=== PATIENT | female | born 1925 | race Caucasian/White ===

== ENCOUNTER 2016-07-31 19:26 | Observation (INO) ==
[2016-07-31] MEDS ORDERED: cefTRIAXone 1 GM VIAL IM ONE (19:53)
[2016-07-31 20:48] LABS: Basophils # (Auto) 0.1 K/mcL (0.0-0.3); Basophils % (Auto) 0.5 % (0.0-2.0); Eosinophils # (Auto) 0 K/mcL (0.0-0.7); Eosinophils % (Auto) 0.2 % (0.0-7.0); Granulocytes % (Auto) 82.7 % (38.0-78.0); Lymphocytes # (Auto) 1.1 K/mcL (1.5-4.8); Lymphocytes % (Auto) 8.2 % (15.5-49.0); Mean Cell Volume 89.4 fL (80.0-100.0); Mean Corpuscular HGB Conc 33.8 g/dL (31.0-36.0); Mean Corpuscular Hemoglobin 30.3 pg (26.0-34.0); Monocytes # (Auto) 1.1 K/mcL (0.1-0.9); Monocytes % (Auto) 8.4 % (1.0-12.0); Platelet Count 301 K/mcL (140-440); RBC 4.69 M/mcL (4.00-5.20); Red Cell Distribution Width 12.3 % (11.5-14.5)
[2016-07-31 20:56] LABS: ALT/SGPT 17 U/l (0-40); Albumin 4.4 gm/dL (3.2-5.2); Albumin/Globulin Ratio 1.4 (1.0-2.3); Alkaline Phosphatase 83 U/L (39-117); Blood Urea Nitrogen 16 mg/dl (8-23)
[2016-07-31 21:01] LABS: Appearance,Urine TURBID; Bacteria,Urine MANY /hpf (0); Bilirubin,Urine NEG (NEG); Color,Urine AMBER; Glucose,Urine (UA) NEGATIVE (NEG); Leukocyte Esterase,Urine 500 /uL (NEG); Nitrate,Urine NEG (NEG); Protein,Urine 100 mg/dL (NEG); Specific Gravity,Urine 1.015 (1.000-1.035); Urine Blood >=1.0 mg/dL (<0.03); Urine RBC 78 /hpf (0-1); Urine Squamous Epithelial Cell 0 /hpf (0-4); Urine WBC > 182 /hpf (0-4); Urobilinogen,Urine NEG (NEG)
[2016-07-31] MEDS ORDERED: 0.9 % SODIUM CHLORIDE 1,000 ML IV ONE (21:12)
--- NOTE | 2016-07-31 21:22 | Emergency Department Note ---
Altered Mental Status HPI - General Chief Complaint: Altered Mental Status Stated Complaint: confusion, pos unwitnessed fall Time Seen by Provider: 07/31/16 19:41 Source: patient Mode of arrival: wheelchair Limitations: altered mental status - History of Present Illness HPI Narrative: 89-year-old female who was found by her son on the floor covered in urine- she damien depended side of [facility] facility across the street. In the past this is been from a UTI- she gets quite confused with these. Unclear how long she was down. She is not able to walk or get up secondary to weakness- normally she ambulates with a walker independently to meals 3 times a day All history from her son- she is able to answer yes and no questions but is unable to remember any events, minimal reliable review of systems and history - Related Data Previous Rx's Medication Instructions Recorded Polyethylene Glycol 3350 [Miralax] 17 gm PO Q1HP PRN #500 gm 10/23/14 traMADol [Ultram] 50 mg PO Q4-6HP PRN #10 tablet 10/25/14 Allergies Allergy/AdvReac Type Severity Reaction Status Date / Time No Known Drug Allergies Allergy Unverified 09/26/14 07:55 Review of Systems All systems ED: reviewed and negative except as stated. Past Medical History - Past Medical History Source: obtained from family Medical history: Denies: cancer, coronary artery disease Surgical history ED: Reports: no surgical history - Social History smoking status: Never smoker Alcohol use: Reports: None Physical Exam Normocephalic atraumatic. Conjunctiva clear sclerae anicteric. No nasal discharge or congestion. Oropharynx is pink and moist. Neck supple without lymphadenopathy or thyromegaly. Heart is regular rate and rhythm no murmurs appreciated. Lungs are clear to auscultation bilaterally without wheezes rales rhonchi or respiratory distress. Abdomen soft nontender nondistended. No peritoneal signs or guarding. No CVA tenderness. No pedal edema. +2 radial pulse. Alert and able to answer questions, but seems to have some short-term memory loss. Mild confusion noted. No dysarthria or ataxia. Euthymic - General Limitations: no limitations Course Vital Signs Temperature 97.7 F 07/31/16 19:27 Pulse Rate 88 07/31/16 19:27 Respiratory Rate 18 07/31/16 19:27 Blood Pressure 207/86 07/31/16 19:27 Pulse Oximetry (%) 96 07/31/16 19:27 Temperature 97.7 F 07/31/16 19:27 Pulse Rate 74 07/31/16 20:46 Respiratory Rate 18 07/31/16 19:27 Blood Pressure 180/156 07/31/16 21:01 Pulse Oximetry (%) 97 07/31/16 20:46 Altered Mental Status - Lab Data Lab results reviewed: Yes I reviewed the patient's lab results. Result diagrams: 07/31/16 20:10 07/31/16 20:10 Lab Results 07/31/16 07/31/16 07/31/16 Range/Units 19:56 20:10 20:10 WBC 13.2 H (4.5-11.0) K/mcL RBC 4.69 (4.00-5.20) M/mcL Hgb 14.2 (12.0-15.0) g/dL Hct 42.0 (36.0-48.0) % MCV 89.4 (80.0-100.0) fL MCH 30.3 (26.0-34.0) pg MCHC 33.8 (31.0-36.0) g/dL RDW 12.3 (11.5-14.5) % Plt Count 301 (140-440) K/mcL MPV 8.4 (7.4-10.4) fL Gran % 82.7 H (38.0-78.0) % Lymph % (Auto) 8.2 L (15.5-49.0) % [place] % (Auto) 8.4 (1.0-12.0) % Eos % (Auto) 0.2 (0.0-7.0) % Baso % (Auto) 0.5 (0.0-2.0) % Gran # 10.9 H (1.8-8.0) K/mcL Lymph # 1.1 L (1.5-4.8) K/mcL [place] # 1.1 H (0.1-0.9) K/mcL Eos # 0 (0.0-0.7) K/mcL Baso # 0.1 (0.0-0.3) K/mcL VBG Lactic Acid (0.5-2.2) mmol/L Sodium 139 (133-145) mmol/L Potassium 3.4 (3.3-5.1) mmol/L Chloride 99 (96-108) mmol/L Carbon Dioxide 22 (22-30) mmol/L Anion Gap 18.0 H (8-16) BUN 16 (8-23) mg/dl Creatinine 0.8 (0.6-1.1) mg/dl GFR Calculation 65 Glucose 184 H (70-105) mg/dL Calcium 9.8 (8.6-10.4) mg/dl Total Bilirubin 1.0 (0.0-1.0) mg/dL AST 34 (0-37) U/l ALT 17 (0-40) U/l Alkaline Phosphatase 83 (39-117) U/L Total Protein 7.5 (5.9-8.4) gm/dL Albumin 4.4 (3.2-5.2) gm/dL Globulin 3.1 (2.2-3.7) gm/dL Albumin/Globulin Ratio 1.4 (1.0-2.3) Urine Color Raquel Urine Appearance Turbid Urine pH 6.0 (5.0-9.0) Ur Specific [place] 1.015 (1.000-1.035) Urine Protein 100 A (NEG) mg/dL Urine Glucose (UA) Negative (NEG) mg/dL Urine Ketones 20 A (NEG) mg/dL Urine Occult Blood >=1.0 A (<0.03) mg/dL Urine Nitrate Neg (NEG) Urine Bilirubin Neg (NEG) mg/dL Urine Urobilinogen Neg (NEG) mg/dL Ur Leukocyte Esterase 500 A (NEG) /uL Urine RBC 78 H (0-1) /hpf Urine WBC > 182 H (0-4) /hpf Ur Squamous Epith Cells 0 (0-4) /hpf Urine Bacteria Many A (0) /hpf Ur Culture Indicated? Yes 07/31/16 Range/Units 20:10 WBC (4.5-11.0) K/mcL RBC (4.00-5.20) M/mcL Hgb (12.0-15.0) g/dL Hct (36.0-48.0) % MCV (80.0-100.0) fL MCH (26.0-34.0) pg MCHC (31.0-36.0) g/dL RDW (11.5-14.5) % Plt Count (140-440) K/mcL MPV (7.4-10.4) fL Gran % (38.0-78.0) % Lymph % (Auto) (15.5-49.0) % [place] % (Auto) (1.0-12.0) % Eos % (Auto) (0.0-7.0) % Baso % (Auto) (0.0-2.0) % Gran # (1.8-8.0) K/mcL Lymph # (1.5-4.8) K/mcL [place] # (0.1-0.9) K/mcL Eos # (0.0-0.7) K/mcL Baso # (0.0-0.3) K/mcL VBG Lactic Acid 2.3 H (0.5-2.2) mmol/L Sodium (133-145) mmol/L Potassium (3.3-5.1) mmol/L Chloride (96-108) mmol/L Carbon Dioxide (22-30) mmol/L Anion Gap (8-16) BUN (8-23) mg/dl Creatinine (0.6-1.1) mg/dl GFR Calculation Glucose (70-105) mg/dL Calcium (8.6-10.4) mg/dl Total Bilirubin (0.0-1.0) mg/dL AST (0-37) U/l ALT (0-40) U/l Alkaline Phosphatase (39-117) U/L Total Protein (5.9-8.4) gm/dL Albumin (3.2-5.2) gm/dL Globulin (2.2-3.7) gm/dL Albumin/Globulin Ratio (1.0-2.3) Urine Color Urine Appearance Urine pH (5.0-9.0) Ur Specific [place] (1.000-1.035) Urine Protein (NEG) mg/dL Urine Glucose (UA) (NEG) mg/dL Urine Ketones (NEG) mg/dL Urine Occult Blood (<0.03) mg/dL Urine Nitrate (NEG) Urine Bilirubin (NEG) mg/dL Urine Urobilinogen (NEG) mg/dL Ur Leukocyte Esterase (NEG) /uL Urine RBC (0-1) /hpf Urine WBC (0-4) /hpf Ur Squamous Epith Cells (0-4) /hpf Urine Bacteria (0) /hpf Ur Culture Indicated? initial urine dipstick [id number] nitrate positive Disposition Clinical Impression: UTI (lower urinary tract infection) Altered mental status Qualifiers: Altered mental status type: disorientation Qualified Code(s): R41.0 - Disorientation, unspecified Summary: Initial urinalysis showed blood nitrates and leukocytes but specific gravity was low. She was started on on IM Rocephin and labs were drawn. Some of her confusion improved but patient was still overall weak and not improved to the point that she was able to go home. Discussed case with Dr. Sood who agreed to admit patient for altered mental status and UTI Disposition: Xfer As Inpt ([facility]) Condition: Fair Referrals: Marjorie Sood MD [Physician] -
--- NOTE | 2016-07-31 23:21 | Internal Med History&Physical ---
Medical - H&P: HPI Patient information: Note initiated : 07/31/16 at 11:16 pm Service Date, if different from initiated Date: [] Patient: Kiara Dennis 89 y/o F admitted on 07/31/16 for confusion, pos unwitnessed fall. Chief Complaint: confusion/urinary incontinence History of present illness: This is an 89-year-old female with a history of acute encephalopathy related to urinary tract infection, constipation and cognitive impairment who was in her usual state of health yesterday evening when she was last seen by her son. She was coming to bring her groceries today and she did not answer her phone or her door. He used his own ochoa to get into her home which is in the independent side of assisted living at [place]. He found her sitting on the floor of her bathroom with her back against the wall covered in urine and hallucinating. He states she was seeing people that were not there. She had similar symptoms 2 years ago when she struggled with recurrent urinary tract infections. However, during those episodes she had urinary symptoms. Patient denies any dysuria or urgency. The son confirms that she has not complained of anything recently. He is concerned that she was on the bathroom floor all day and has not eaten or drunk anything during that time. At baseline, he reports that she is fairly healthy. She has not seen her primary care physician in 2 years. She is not currently on any medications. She has some difficulty with her short-term memory and keeping track of dates, but otherwise does well living independently. She has not had any fevers and denies nausea. He did not notice any focal deficits when he found her and there 've been no such deficits noted in the ED. Review of systems: Positive for intermittent constipation. Otherwise please see HPI. A comprehensive review of systems is negative or noncontributory to the chief complaint. Medical - H&P: PMH Medical history: Question history of hypertension. 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 She is a DNR/DNI. Her son, Anup Dennis, is her surrogate medical decision maker. Her primary care physician is Dr. Segal, but she has not seen him in 2 years per report. She ambulates with a frontwheel walker. She does not currently use tobacco alcohol or recreational drugs. Medical - H&P: Meds Allergies Allergy/AdvReac Type Severity Reaction Status Date / Time No Known Drug Allergies Allergy Unverified 09/26/14 07:55 Medical - H&P: Exam - Constitutional Vitals: Temp Pulse Resp BP Pulse Ox 98.4 F 77 20 170/84 96 07/31/16 23:00 07/31/16 23:00 07/31/16 23:00 07/31/16 23:00 07/31/16 23:00 General appearance: no acute distress Exam: pleasantly disoriented. Her son is at bedside and provides most of the history - Head Head exam: Present: atraumatic, normocephalic - Eye Eye exam: Present: EOMI, PERRL. Absent: conjunctival injection, scleral icterus - ENT ENT exam: Present: mucous membranes dry, normal oropharynx Additional comments: poor dentition - Neck Neck exam: Absent: lymphadenopathy, meningismus, tenderness, thyromegaly - Respiratory Respiratory exam: Present: CTAB. Absent: accessory muscle use, rales, wheezes - Cardiovascular Cardiovascular exam: Present: normal rate and rhythm, systolic murmur - GI/Abdominal GI/Abdominal exam: Present: normal bowel sounds, soft. Absent: tenderness - Extremities Exam Additional comments: no clubbing or cyanosis - Neurological Exam Neurological exam: Present: alert Additional comments: Oriented to self and recognize her son. She is unable to tell me the year. She states that we are in her home when given multiple choices. Her range of motion is limited her shoulders due to chronic arthritis pain. She has decreased bilateral hand crepe sole scourer for same reason. She has no focal deficits. - Psychiatric Psychiatric exam: Present: normal mood - Skin Skin exam: Present: dry, warm Medical - H&P: Reslt - Labs CBC & Chem 7: 07/31/16 20:10 07/31/16 20:10 Medical - H&P: A/P - Narrative A/P Narrative: * Acute encephalopathy -likely 2/2 UTI as she has had similar sx in past. No e/o other metabolic abnormalities on screening labs -Nonfocal neuro exam. Cont neuro checks and if changes, consider head CT -Underlying cog impairment vs mild dementia. Supportive care. Avoid neuroactive meds as able * Acute cystitis with hematuria -RF include postmenopausal state. ?frequency of incontinence -Last cx showed pansensitive E coli -Cont CTX. F/U Cx and narrow as able * Lactic acidosis -Clinically does not appear to have severe sepsis -Likely 2/2 hypovolemia -Cont IVF x 1L. s/p 1L in ED. Trend in AM * Found down -no e/o head trauma -Check CK. Adjust IVF as necessary * Hypertensive urgency -PRN labetalol -consider adding po med if continues * Bowel prophylaxis--schedule Senna. Monitor for diarrhea. Family is concerned that pt does not voice complaints or concerns and will need close monitoring. * DVT prophylaxis: enoxaparin * Disposition: TBD. PT/CM ordered. Medical - H&P: Qual - VTE Deep Vein Thrombosis/Pulmonary Embolism Present on Admission: No
[2016-07-31] MEDS ORDERED: ONDANSETRON 4 MG/2 ML VIAL IV PRN (23:41)
[2016-07-31] MEDS ORDERED: LABETALOL HCL 20 MG/4 ML SYRINGE IV PRN (23:41)
[2016-07-31] MEDS ORDERED: ACETAMINOPHEN 325 MG TABLET PO PRN (23:41)
[2016-07-31] MEDS ORDERED: 0.9 % SODIUM CHLORIDE 1,000 ML IV SCH (23:45)
[2016-08-01] MEDS: 0.9 % SODIUM CHLORIDE 10 ML SYRINGE IV SCH ×3 (05:44→20:28)
[2016-08-01 06:20] LABS: Basophils # (Auto) 0 K/mcL (0.0-0.3); Basophils % (Auto) 0.2 % (0.0-2.0); Eosinophils # (Auto) 0 K/mcL (0.0-0.7); Eosinophils % (Auto) 0.2 % (0.0-7.0); Granulocytes % (Auto) 78.8 % (38.0-78.0); Lymphocytes % (Auto) 8.9 % (15.5-49.0); Mean Cell Volume 91.1 fL (80.0-100.0); Mean Corpuscular HGB Conc 34.6 g/dL (31.0-36.0); Mean Corpuscular Hemoglobin 31.5 pg (26.0-34.0); Monocytes # (Auto) 1.4 K/mcL (0.1-0.9); Monocytes % (Auto) 11.9 % (1.0-12.0); Platelet Count 262 K/mcL (140-440); RBC 4.07 M/mcL (4.00-5.20)
[2016-08-01 06:33] LABS: Blood Urea Nitrogen 14 mg/dl (8-23)
[2016-08-01 08:03] LABS: Creatine Kinase 869 IU/L (24-170)
[2016-08-01] MEDS: ENOXAPARIN 40 MG/0.4 ML SYRINGE SQ SCH (10:13)
[2016-08-01] MEDS: cefTRIAXone 1 GM in DEXTROSE 5% IN WATER 50 ML IV SCH (10:13)
--- NOTE | 2016-08-01 11:00 | Internal Med Progress Note ---
Medical - PN: Subj Patient information: Note initiated : 08/01/16 at 10:57 am Service Date, if different from initiated Date: [] Patient: Kiara Dennis 89 y/o F admitted on 07/31/16 for confusion, pos unwitnessed fall. Chief Complaint: UTI Interval history: This is a pleasant 89-year-old female with a history of acute encephalopathy related to urinary tract infection, constipation and cognitive impairment who was admitted 07/31 with acute encephalopathy manifested by hallucinations and confusion. This was found to be secondary to a UTI. She has prior history of similar symptoms 2 years ago. She was found sitting down on her bathroom floor for an unknown period of time. She had mild elevation in her CK and has responded dramatically to ceftriaxone and fluids. At baseline, she is fairly healthy. She has not seen her primary care physician in 2 years. She is not currently on any medications. She has some difficulty with her short-term memory and keeping track of dates, but otherwise does well living independently. She has been evaluated by PT with plans to likely DC to independent living 08/02. 08/01: No longer confused. Lactic acidosis has resolved. CK trending down. Still having some difficulty getting around with walker. Cx still pending. Pertinent ROS: no fever or sob - Constitutional Vitals: Vital Signs Temp Pulse Resp BP Pulse Ox 98.3 F 77 16 165/94 98 08/01/16 06:38 08/01/16 03:20 08/01/16 06:38 08/01/16 06:38 08/01/16 06:38 Period Temp Pulse Resp BP Sys/Wright Pulse Ox Last 24 Hr 97.7 F-98.5 F 74-77 16-20 161-170/84-110 95-98 Intake and Output 07/31/16 08/01/16 08/01/16 21:59 05:59 13:59 Intake Total 1000 / 1000 600 / 600 Balance 1000 / 1000 600 / 600 Weight 139 lb Intake & Output: Intake & Output 07/31/16 08/01/16 08/01/16 21:59 05:59 13:59 Intake Total 1000 / 1000 600 / 600 Balance 1000 / 1000 600 / 600 Weight 139 lb Intake: IV 1000 / 1000 Sodium Chloride 0.9% 1, 1000 / 1000 000 ml @ Wide Open IV BOLUS ONE Rx#:[id number] Oral 0 / 0 600 / 600 Other: Meal Breakfast Percent of Meal Consumed 50% Feeding Ability Independent # Voids 1 # Bowel Movements 1 1 General appearance: no acute distress - Head Head exam: Present: atraumatic - Respiratory Respiratory exam: Present: CTAB. Absent: respiratory distress - Cardiovascular Cardiovascular exam: Present: normal rate and rhythm - GI/Abdominal GI/Abdominal exam: Present: normal bowel sounds, soft. Absent: tenderness - Extremities Exam Extremities exam: Absent: pedal edema - Neurological Exam Neurological exam: Present: alert Additional comments: oriented to [place] and situation. No focal deficits. - Psychiatric Psychiatric exam: Present: normal affect, normal mood Medical - PN: Obj Da - Labs CBC & Chem 7: 08/01/16 05:30 08/01/16 05:30 Labs: Abnormal Lab Results 08/01/16 08/01/16 08/01/16 07:08 05:30 05:30 WBC 11.8 H Gran % 78.8 H Lymph % (Auto) 8.9 L Gran # 9.3 H Lymph # 1.0 L [place] # 1.4 H Carbon Dioxide 21 L Glucose 170 H Total Creatine Kinase 869 H Meds: Medications Acetaminophen (Tylenol) 650 mg PO Q6HP PRN PRN Reason: PAIN/FEVER > 101 Enoxaparin Sodium (Lovenox) 40 mg SQ DAILY [facility] Last Admin: 08/01/16 10:13 Dose: 40 mg Ceftriaxone Sodium 1 gm/ (Dextrose) 50 mls @ 100 mls/hr IV Q24H [facility] Stop: 08/05/16 09:29 Last Admin: 08/01/16 10:13 Dose: 100 mls/hr Labetalol HCl (Labetalol Hcl) 10 mg IV Q6HP PRN PRN Reason: sbp >170 Ondansetron HCl (Zofran) 4 mg IV Q6HP PRN PRN Reason: Nausea And Vomiting Senna (Senokot) 2 tab PO HS [facility] Sodium Chloride (Saline Flush) 10 ml IV Q8 [facility] Last Admin: 08/01/16 05:44 Dose: Not Given Medical - PN: A/P - Time Spent With Patient Total time spent is greater than 50% in coordination of care (as documented) at patient's floor/unit and/or counseling patient: 25 - 35 minutes - Narrative A/P Narrative: * Acute encephalopathy -2/2 UTI -Underlying cog impairment vs mild dementia. Supportive care. Avoid neuroactive meds as able * Acute cystitis with hematuria -RF include postmenopausal state. ?frequency of incontinence -Last cx showed pansensitive E coli -Cont CTX. F/U Cx and narrow as able * Lactic acidosis, resolved * Found down -mild CK elevation ,resolved with IVF -no e/o head trauma * Hypertensive urgency -PRN labetalol -consider adding po med if continues although pt resistant to taking any regular meds * Fasting hyperglycemia -likely stress response. Trend FBS. pt resistant to taking regular meds. Discuss with pt as needed. * Bowel prophylaxis--schedule Senna. Monitor for diarrhea. Family is concerned that pt does not voice complaints or concerns and will need close monitoring. * DVT prophylaxis: enoxaparin * Disposition: Likely home to independent living 08/02 once cx results known Medical - PN: Qual - VTE Deep Vein Thrombosis/Pulmonary Embolism Present on Admission: No
[2016-08-01] MEDS ORDERED: SENNOSIDES 1 TABLET PO SCH (21:00)
[2016-08-02 06:30] LABS: Basophils # (Auto) 0 K/mcL (0.0-0.3); Basophils % (Auto) 0.3 % (0.0-2.0); Eosinophils # (Auto) 0.2 K/mcL (0.0-0.7); Eosinophils % (Auto) 2.7 % (0.0-7.0); Lymphocytes # (Auto) 2.2 K/mcL (1.5-4.8); Lymphocytes % (Auto) 24.4 % (15.5-49.0); Mean Cell Volume 92.2 fL (80.0-100.0); Mean Corpuscular HGB Conc 33.7 g/dL (31.0-36.0); Mean Corpuscular Hemoglobin 31.1 pg (26.0-34.0); Monocytes # (Auto) 0.9 K/mcL (0.1-0.9); Monocytes % (Auto) 9.6 % (1.0-12.0); Platelet Count 250 K/mcL (140-440); RBC 3.79 M/mcL (4.00-5.20)
[2016-08-02 06:42] LABS: Blood Urea Nitrogen 15 mg/dl (8-23)
[2016-08-02] MEDS: ENOXAPARIN 40 MG/0.4 ML SYRINGE SQ SCH (08:39)
[2016-08-02] MEDS: cefTRIAXone 1 GM in DEXTROSE 5% IN WATER 50 ML IV SCH ×2 (08:41→08:48)
[2016-08-02] MEDS: 0.9 % SODIUM CHLORIDE 10 ML SYRINGE IV SCH ×2 (10:06→16:50)
--- NOTE | 2016-08-02 11:00 | Discharge Summary ---
Medical - DS: Prov Patient information: Note initiated : 08/02/16 at 10:55 am Service Date, if different from initiated Date: [] Patient: Kiara Dennis 89 y/o F admitted on 07/31/16 for Confusion, Pos Unwitnessed Fall/UTI. Chief Complaint: [] Date of admission: 07/31/16 22:34 Discharge date: 08/02/16 Primary care physician: [f_Reg Prim Care Provider] Medical - DS: Meds - Discharge Medications Prescriptions: Cefdinir 300 mg PO BID #10 capsule Active and Home Medications: Home Medications Acetaminophen [Tylenol] 650 mg PO Q6HP PRN #0 tablet 08/02/16 [Rx Last Taken Unknown] Cefdinir 300 mg PO BID #10 capsule 08/02/16 [Rx Last Taken Unknown] Medical - DS: Hosp Hospital course: DISCHARGE DIAGNOSIS * complicated Klebsiella oxytoca UTI-clinical response noted on IV Rocephin. Continued additional 5 days oral third-generation cephalosporin. * acute mental status change secondary to complicated UTI. Clinically back to baseline * mild rhabdomyolysis-clinically resolved. Renal function stable. CK downtrending * Hypertensive urgency- Likely secondary to mental status changes and agitation. Current blood pressure within 130-140 systolics. Recommend outpatient optimization of blood pressure and follow-up with primary care physician [facility] This is a pleasant 89-year-old female with a history of acute encephalopathy related to urinary tract infection, constipation and cognitive impairment who was admitted 07/31 with acute encephalopathy manifested by hallucinations and confusion. This was found to be secondary to a UTI. She has prior history of similar symptoms 2 years ago. She was found sitting down on her bathroom floor for an unknown period of time. She had mild elevation in her CK and has responded dramatically to ceftriaxone and fluids. At baseline, she is fairly healthy. She has not seen her primary care physician in 2 years. She is not currently on any medications. She has some difficulty with her short-term memory and keeping track of dates, but otherwise does well living independently. She has been evaluated by PT with plans to likely DC to independent living 08/02. 08/01: No longer confused. Lactic acidosis has resolved. CK trending down. Still having some difficulty getting around with walker. Cx still pending. 08/02-patient seen in room sitting in chair. No overnight events. Feels remarkably improved and requesting discharge. Case discussed with patient's [id number] Skylar. Patient will live withson. Recommend antibiotics for additional 5 days for Klebsiella UTI. also recommend home health Discharge diagnosis: . - Time Spent with Patient Total time spent providing and/or coordinating discharge services: Greater than 30 minutes Medical - DS: Exam - Constitutional Vitals: Vital Signs Temp Pulse Resp BP BP Pulse Ox 08/02/16 07:41 98.5 F 68 16 148/81 95 08/02/16 03:40 98.2 F 74 16 144/77 94 08/01/16 23:41 97.4 F L 61 18 127/70 96 08/01/16 19:50 98.0 F 75 22 134/82 97 08/01/16 16:00 98.7 F 69 16 134/80 97 08/01/16 12:00 98.7 F 16 155/71 98 Intake and Output 08/01/16 08/02/16 08/02/16 21:59 05:59 13:59 Intake Total 240 / 240 800 / 800 Output Total 650 / 650 450 / 450 Balance -410 / -410 350 / 350 Intake: Oral 240 / 240 800 / 800 Output: Void Amount 650 / 650 450 / 450 Other: Meal Dinner Percent of Meal Consumed 75% Feeding Ability Independent # Bowel Movements 1 Weight 140 lb 8 oz General appearance: cooperative, no acute distress Additional comments: lert oriented nonlabored breathing No significant lymphedema Medical - DS: Data Labs on day of discharge: Labs from last 24 hours 08/02/16 08/02/16 05:30 05:30 WBC 8.8 RBC 3.79 L Hgb 11.8 L Hct 35.0 L MCV 92.2 MCH 31.1 MCHC 33.7 RDW 13.0 Plt Count 250 MPV 8.2 Gran % 63.0 Lymph % (Auto) 24.4 [place] % (Auto) 9.6 Eos % (Auto) 2.7 Baso % (Auto) 0.3 Gran # 5.6 Lymph # 2.2 [place] # 0.9 Eos # 0.2 Baso # 0 Sodium 142 Potassium 3.6 Chloride 108 Carbon Dioxide 22 Anion Gap 12.0 BUN 15 Creatinine 0.7 GFR Calculation 77 Glucose 152 H Calcium 8.7 Medical - DS: A/P - Patient/Caregiver Discharge Instructions Activity: increase activity as tolerated, resume usual activities as tolerated Diet: Regular Diet Additional Instructions: Follow-up PCP in 5 days I recommend SNF physician to check CBC BMP UA as a posthospital follow-up Antibiotics for 5 days Continue aggressive bowel regimen to prevent constipation Continue fall precautions recommend home health physical therapy All meals on chair sitting upright at 90 degrees to prevent aspiration Return to ER if worsening fever chills shortness of breath, diarrhea, bleeding Review risk and side effect profile of medications including antibiotics. Side effect may include mild to severe reaction including rash, diarrhea, cdiff and even which can be prevented by close follow-up with PCP and monitoring for side effects Continue diet and activity as advised Discussed importance of medication adherence Please review medication list with patient prior to discharge Please schedule follow-up with PCP/Providers prior to discharge and provide printouts Portions of this chart may have been created with [email or web address] voice recognition software. Occasional wrong-word or ?sound-like? substitutions may have occurred due to the inherent limitations of voice recognition software. Please read the chart carefully and recognize, using context, where the substitutions have occurred. CC- PCP Prescriptions: Cefdinir 300 mg PO BID #10 capsule - Follow up Plan Follow up with: Marjorie Sood MD [Physician] - Disposition: Home, Self-Care Prognosis: Fair Rehab Potential: Fair I certify that the patient requires SNF services: No Overall status at discharge: patient is progressing back to baseline Medical - DS: Qual - VTE Deep Vein Thrombosis/Pulmonary Embolism Present on Admission: No
== END 2016-08-02 17:43 | disposition home or self-care (01) ==
LOC: ED 19:26 → MEDSUR 19:26
PROVIDERS: ADMIT Internal Medicine; ATTEND Internal Medicine